=== PATIENT | female | born 1960 | race Asian ===

== ENCOUNTER → 2017-01-16 | Emergency (ER) | payer OTHER ==
[2017-01-16 21:20] VITALS: BP 132/96; PULSE 86; TEMP 97.6; BMI 30.2
== END | disposition left against medical advice (07) ==
LOC: JER 21:12 → JERFT 21:12
DX: Z53.21 Procedure and treatment not carried out due to patient leaving prior to being seen by health care provider (principal)
CPT/HCPCS: 99281-25

== ENCOUNTER → 2022-07-04 | Day surgery (SDC) | payer OTHER | END | disposition home or self-care (01) | LOC: FMAMMOTONE 12:26 | PROVIDERS: ATTEND Family Medicine | PROC: 0HBU3ZX Excision of Left Breast, Percutaneous Approach, Diagnostic (ICD-10-PCS; principal; 2022-07-04) | DX: D05.12 Intraductal carcinoma in situ of left breast (principal); N64.89 Other specified disorders of breast; R92.1 Mammographic calcification found on diagnostic imaging of breast | CPT/HCPCS: 19081; 76098-TC-FY; 87899; 88305-TC; A4648 ==